=== PATIENT | female | born 1990 | race Two or more races ===

== ENCOUNTER → 2018-12-27 | Outpatient (CLI) | payer BC ==
[2018-12-31 20:07] LABS: NIL 0.07 IU/mL; QUANTIFERON(R)-TB GOLD POSITIVE (NEGATIVE); TB-NIL 0.38 IU/mL; TB2-NIL 0.47 IU/mL
== END | disposition home or self-care (01) ==
LOC: LAB 18:36
DX: Z11.1 Encounter for screening for respiratory tuberculosis (principal)
CPT/HCPCS: 86480

== ENCOUNTER 2019-05-27 05:29 | Emergency (ER) | payer OTHER, BC ==
[2019-05-27 06:13] LABS: HAAIG REFLEX REFLEX FILED
[2019-05-27 07:29] LABS: HEPATITIS B SURFACE ANTIGEN NEGATIVE (NEGATIVE)
[2019-05-27 07:46] LABS: HEPATITIS C VIRAL ANTIBODY NEGATIVE (NEGATIVE); HIV 1&2 ANTIBODY NEGATIVE (NEGATIVE)
[2019-05-27 10:03] LABS: HEPATITIS B CORE ANTIBODY NEGATIVE (NEGATIVE)
== END 2019-05-27 06:10 | disposition home or self-care (01) ==
LOC: FTE 05:29
DX: S61.031A Puncture wound without foreign body of right thumb without damage to nail, initial encounter (principal); W46.0XXA Contact with hypodermic needle, initial encounter; Y92.239 Unspecified place in hospital as the place of occurrence of the external cause
CPT/HCPCS: 36415; 86703; 86704; 86709; 86803; 87340; 87536; 99283